=== PATIENT | female | born 1965 | race Caucasian/White ===

== ENCOUNTER 2016-10-01 14:30 | Emergency (ER) | payer SELFPAY ==
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
[2016-10-01 14:57] VITALS: BP 139/67; PULSE 80; RESP 16; TEMP 98.3; O2SAT 96
== END 2016-10-01 16:11 | disposition home or self-care (01) ==
LOC: CED 14:30
DX: K62.5 Hemorrhage of anus and rectum (principal); Z87.891 Personal history of nicotine dependence
CPT/HCPCS: 82270-PO; G0463-PO

== ENCOUNTER → 2016-10-09 | Outpatient (CLI) | payer MEDICAID ==
--- NOTE | 2016-10-09 11:31 | DX ---
Chest, PA and Lateral History: Dyspnea, R06.02 COMPARISON: August 08, 2016 Findings: Perihilar bronchial wall thickening is chronic or recurrent. There is no focal infiltrate o r consolidation. Heart size and pulmonary vascularity are normal. There is no adenopathy or mass lesi on. There is no pleural effusion, pneumomediastinum or pneumothorax. Bones are unremarkable for age. Impression: Possible airways disease. No pneumonia.
--- NOTE | 2016-10-09 16:15 | MA ---
Screening Digital Mammogram With iCAD Analysis Clinical Indications: Routine screening. Technique: Standard cephalocaudal and mediolateral oblique projections were obtained. This examinatio n was processed by the iCAD computer aided detection system. Comparison: January 2014, January 2011, August 2008, July 2007. Breast density: Type C; Heterogeneously dense. Findings: CAD was reviewed. No masses, suspicious calcifications or other signs of malignancy are id entified. There has been no significant change in the appearance of either breast. Impression: Negative mammogram. BI-RADS 1. Recommendation: Mammographic screening in one year as long as physical examination is negative in thi s patient with heterogeneously dense breasts. [facility] will send a result letter to the patient. Dense breast parenchyma diminishes mammographic sensitivity. Negative mammography should not preclude additional workup of a clinically suspicious finding. The patient's information is entered into a reminder system with a target due date for her next mammo gram.
== END ==
LOC: CIMAGING 10:16
DX: Z12.31 Encounter for screening mammogram for malignant neoplasm of breast (principal); R06.02 Shortness of breath
CPT/HCPCS: 71020-PO; G0202

== ENCOUNTER 2017-06-15 12:51 | Emergency (ER) | payer MEDICAID, OTHER ==
[2017-06-15] MEDS ORDERED: BENZONATATE 100 MG CAP PO ONE (13:10)
[2017-06-15 13:12] VITALS: BP 131/72; PULSE 87; RESP 16; TEMP 98.1; O2SAT 97
--- NOTE | 2017-06-15 13:14 | EDPHY ---
H & P Time Seen by Provider: 06/15/17 12:57 HPI/ROS: HPI Cough. 52-year-old female by private vehicle. She complains of a intermittently productive verses nonproductive force cough, ongoing for 2-3 days, worsening today. She has an associated scratchy throat but denies significant sore throat. She also states that she has had some hoarseness in her voice. She does not think she has had a fever. She denies any myalgias or arthralgias. No ill contacts. ROS: Constitutional: No fever, no chills. No weakness. Eyes: No discharge. No changes in vision. ENT: As above. No sore throat. No nasal congestion or rhinorrhea. Respiratory: As above. No shortness of breath. Cardiac: No chest pain, no palpitations. Gastrointestinal: No abdominal pain, no vomiting, no diarrhea. Musculoskeletal: No back pain. No neck pain. No myalgias or arthralgias. Skin: No rashes. Neurological: No headache. No focal weakness or altered sensation. Past medical history: Alcohol abuse. Social history: No alcohol. No IV drug street drug use. Nonsmoker. Here by herself. Physical Exam: General Appearance: Alert, no distress. This patient is responding to questions appropriately and in full sentences. This patient appears well- hydrated and well-nourished. Eyes: Pupils equal and round no pallor or injection. No lid edema, erythema or injection. ENT, Mouth: Mucous membranes are moist. The pharyngeal tissues are unremarkable. No edema or swelling. No asymmetry suggestive of abscess. No erythema or exudates. Respiratory: There are no retractions, lungs are clear to auscultation with good air movement bilaterally. No tachypnea. Intermittent dry cough. Cardiovascular: Regular rate and rhythm. No murmur. Neurological: Motor sensory function is grossly intact. Cranial nerves are normal. Gait is normal. Skin: Warm and dry, no rashes. Musculoskeletal: Neck is supple and nontender. Extremities are symmetrical. All joints range without pain or impingement. Psychiatric: No agitation. No depression. Database: EKG: Imaging: Chest x-ray PA and lateral; the cardiac mediastinal silhouette is unremarkable. No evidence of infiltrate or pneumothorax. Probable bronchitis. No other acute cardiopulmonary disease process noted. Interpreted by me. Procedures: Emergency department course: Vital signs reviewed. She is afebrile. Vital signs otherwise normal. Chest x- ray ordered. He was given Tessalon Perle for her cough. 1:40 p.m., patient re-evaluated. Resting comfortably at this time. Results of her x-ray were discussed with her. I discussed likely viral etiology. I explained that I did not feel that antibiotics were indicated at this time. Plan will be to treat with Tessalon parole and Robitussin. She is in agreement. She feels comfortable going home and I feel she is safe for discharge. Follow-up and return to emergency department precautions discussed with her. All of her questions were answered. She was discharged in good condition. Differential Diagnosis: The differential diagnosis on this patient includes but is not limited to viral bronchitis, viral upper respiratory infection. Bacterial pneumonia, influenza unlikely. This represents a partial list of diagnoses considered. These considerations are based on history, physical exam, past history, reassessment and diagnostic testing. Smoking Status: Never smoked Constitutional: Initial Vital Signs Temperature (C) 36.7 C 06/15/17 13:01 Heart Rate 87 06/15/17 13:01 Respiratory Rate 16 06/15/17 13:01 Blood Pressure 131/72 H 06/15/17 13:01 O2 Sat (%) 97 06/15/17 13:01 O2 Delivery Mode Room Air Allergies/Adverse Reactions: Sulfa (Sulfonamide Antibiotics) Allergy (Verified 06/15/17 13:12) Home Medications: Medication Instructions Recorded Alphagan 0.2% 06/15/17 Benzonatate [Tessalon Pearles] 100 mg PO TID #12 cap 06/15/17 Medical Decision Making - Data Points Medications Given: Discontinued Medications Benzonatate (Tessalon Pearles) 200 mg PO EDNOW ONE Stop: 06/15/17 13:11 Last Admin: 06/15/17 13:33 Dose: 200 mg Departure - Departure Disposition: Home, Routine, Self-Care Clinical Impression: Bronchitis Condition: Good Instructions: Acute Bronchitis (ED) Additional Instructions: Read and follow provided instructions. Follow-up with your primary care physician on Saturday as discussed for re- evaluation. You can also be rechecked here as discussed if you do not feel your getting better and your unable to see your primary care physician.. Take medication as prescribed. You can berry picker Robitussin cough and cold syrup at the pharmacy. Take as directed. Return to the emergency department for worsening cough, difficulty breathing, high fever or other serious concerns. Referrals: [facility],. [Primary Care Provider] - As per Instructions Prescriptions: Benzonatate [Tessalon Pearles] 100 mg PO TID #12 cap
== END 2017-06-15 13:56 | disposition home or self-care (01) ==
LOC: CED 12:51
DX: J40 Bronchitis, not specified as acute or chronic (principal)
CPT/HCPCS: 71020-PO

== ENCOUNTER 2017-06-21 18:14 | Emergency (ER) | payer MEDICAID ==
--- NOTE | 2017-06-21 18:28 | CPEKG ---
Heart Rate: 69 RR Interval: 870 P-R Interval: 148 QRSD Interval: 88 QT Interval: 380 QTC Interval: 407 P [place]: 18 QRS [place]: 54 T Wave [place]: 2 EKG Severity - NORMAL ECG - EKG Impression: SINUS RHYTHM Electronically Signed By: Wili Tran 21-Jun-2017 23:19:43
[2017-06-21] MEDS ORDERED: ASPIRIN 81 MG CHEWABLE TAB PO ONE (18:36)
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
[2017-06-21 18:53] LABS: % IMMATURE GRANULYOCYTES 0.4 % (0.0-1.1); ABSOLUTE IMMATURE GRANULOCYTES 0.03 10^3/uL (0.00-0.10); ADD DIFF? NO; ADD MORPH? NO; ADD SCAN? NO; ATYPICAL LYMPHOCYTE FLAG 10 (0-99); FRAGMENT RBC FLAG 0 (0-99); HEMATOCRIT 37.8 % (38.0-47.0); HEMOGLOBIN 12.6 g/dL (12.6-16.3); LEFT SHIFT FLG 0 (0-99); LIPEMIA HEMOLYSIS FLAG 80 (0-99); MEAN CELL HEMOGLOBIN 28.3 pg (27.9-34.1); MEAN CELL HEMOGLOBIN CONCENTR. 33.3 g/dL (32.4-36.7); MEAN CELL VOLUME 84.9 fL (81.5-99.8); MEAN PLATELET VOLUME 9.4 fL (8.7-11.7); PLATELET CLUMPS FLAG 0 (0-99); PLATELET COUNT 232 10^3/uL (150-400); RED BLOOD CELL COUNT 4.45 10^6/uL (4.18-5.33); RED CELL DISTRIBUTION WIDTH 13.3 % (11.5-15.2)
[2017-06-21] MEDS ORDERED: ASPIRIN 81 MG CHEWABLE TAB ONE (18:53)
[2017-06-21 19:11] LABS: ANION GAP 12 mEq/L (8-16); CALCIUM 9.3 mg/dL (8.5-10.4); CARBON DIOXIDE 26 mEq/l (22-31); CHLORIDE 102 mEq/L (97-110); CREATININE 0.6 mg/dL (0.6-1.0); GLOMERULAR FILTRATION RATE > 60; GLUCOSE 90 mg/dL (70-100); POTASSIUM 3.9 mEq/L (3.5-5.2); SODIUM 140 mEq/L (134-144)
[2017-06-21 19:22] LABS: TROPONIN I < 0.012 ng/mL (0.000-0.034)
[2017-06-21 19:45] VITALS: RESP 16; TEMP 98.4
[2017-06-21 20:27] VITALS: BP 132/69; PULSE 66; O2SAT 97
== END 2017-06-21 20:31 | disposition home or self-care (01) ==
LOC: CED 18:14
DX: R07.89 Other chest pain (principal); R05 Cough
CPT/HCPCS: 71020-PO; 80048-PO; 84484-PO; 85025-PO; 85378-PO

== ENCOUNTER 2017-10-04 10:50 | Emergency (ER) | payer MEDICAID, OTHER ==
[2017-10-04 10:58] VITALS: RESP 20; TEMP 98.2; O2SAT 96
--- NOTE | 2017-10-04 11:12 | EDPHY ---
H & P Time Seen by Provider: 10/04/17 10:53 HPI/ROS: This patient complains of a 3 day history of coughing and nasal congestion. She reports occasional sputum production with her cough that is described as yellow. She is bothered by the nasal congestion and feeling of chest congestion because she is a Michele that required she finds it difficult discussing with the symptoms currently. She states symptoms are moderate intensity and she has no other associated symptoms except that backed of fevers. She also does report mild myalgias diffusely. She drove herself here by private vehicle for evaluation. ROS: No significant fatigue or other constitutional symptoms beyond what is mentioned in HPI. HEENT: No sinus pain. No throat pain or ear pain. Pulmonary: No respiratory distress. No hemoptysis. No pleuritic pain. No significant shortness of breath. Cardiovascular: No lightheadedness or leg pain. No leg swelling. GI: No nausea vomiting or abdominal pain. She did have loose stools for 24 hr prior to the onset of her URI symptoms but the loose stools have since resolved. : No complaints Integumentary: No rash Endocrine: No complaints 10 point ROS is otherwise negative Social History: Sober for 30 years. No drug use Smoking Status: Never smoked Physical Exam: General Appearance: Alert, no distress. Eyes: Pupils equal and round no pallor or injection. ENT, Mouth: Mucous membranes moist. Respiratory: Patient has rales in the right midlung field. Otherwise clear to auscultation bilaterally. No increased work of breathing. Cardiovascular: Regular rate and rhythm. No murmur gallop or rub. No leg swelling or tenderness. Gastrointestinal: Abdomen is soft and nontender, no masses, bowel sounds normal. Neurological: GCS 15. Skin: Warm and dry, no rashes. Musculoskeletal: Neck is supple nontender. Extremities are symmetrical, full range of motion. Psychiatric: Mood and affect are normal DIFFERENTIAL DIAGNOSIS: After history and physical exam differential diagnosis was considered for URI with cough and atelectasis, influenza, pneumonia, bronchitis Constitutional: Initial Vital Signs Temperature (C) 36.8 C 10/04/17 10:54 Heart Rate 85 10/04/17 10:54 Respiratory Rate 20 10/04/17 10:54 Blood Pressure 128/82 H 10/04/17 10:54 O2 Sat (%) 96 10/04/17 10:54 O2 Delivery Mode Room Air Allergies/Adverse Reactions: shellfish derived Allergy (Unknown, Verified 10/04/17 10:54) Other-Enter Comments Sulfa (Sulfonamide Antibiotics) Allergy (Verified 10/04/17 10:54) almond Allergy (Severe, Uncoded 06/21/17 18:23) Anaphylaxis Home Medications: Medication Instructions Recorded Brimonidine 0.15% [Alphagan P 12/25/11 0.15%] Multivitamin 08/08/16 Alphagan 0.2% 06/15/17 Benzonatate [Tessalon Pearles] 100 mg PO TID #12 cap 06/15/17 Albuterol Hfa Anes Only [Proair 2 puffs IH Q4 PRN #1 mdi 06/21/17 Hfa Icu (*)] Benzonatate [Tessalon Pearles (RX)] 100 - 200 mg PO TID PRN #20 cap 06/21/17 Albuterol [Ventolin Hfa Inhaler] 2 puffs IH Q4 PRN #1 mdi 10/04/17 Azithromycin [Zithromax] 250 mg PO DAILY #6 tab 10/04/17 MDM/Departure - MDM Diagnostics: Rapid flu swab is negative Two view chest x-ray: Bronchitis with right middle lobe infiltrate versus atelectasis-mild by my interpretation Imaging: I viewed and interpreted images myself ED Course/Re-evaluation: Discussion: While this patient's presentation has prominent viral components- nasal congestion currently no fever, she does have rales in the right midlung field with chest radiograph that appears consistent with mild right middle lobe infiltrate versus atelectasis by my interpretation. Her rapid flu swab is negative. Given these findings will cover her with macrolide antibiotic. She appears well clinically with normal vital signs and no evidence of systemic toxicity or sepsis. I think that she is safe for discharge home with oral macrolide and Ventolin inhaler. I counseled regarding this. - Depart Disposition: Home, Routine, Self-Care Clinical Impression: Bronchopneumonia Condition: Good Instructions: Acute Bronchitis (ED) Additional Instructions: Diagnosis: Bronchopneumonia Plan: Humidifier Ventolin inhaler with spacer -2 puffs per 4 hr if needed for cough, wheeze or shortness of breath Zithromax antibiotic No work for the next 24 hr. Follow up with your primary care physician for any symptoms that persist beyond the next 5-7 days despite the treatment plan. Return for any significant worsening despite treatment plan Stand Alone Forms: Work Excuse Prescriptions: Albuterol [Ventolin Hfa Inhaler] 2 puffs IH Q4 PRN #1 mdi PRN Reason: wheeze Azithromycin [Zithromax] 250 mg PO DAILY #6 tab Referrals: [facility],. [Primary Care Provider] - As per Instructions
[2017-10-04 11:58] VITALS: BP 125/78; PULSE 83
[2017-10-04] MEDS ORDERED: ALBUTEROL INH PREPACK MDI TAKEHOME ONE (19:55)
== END 2017-10-04 11:58 | disposition home or self-care (01) ==
LOC: CED 10:50
DX: J18.0 Bronchopneumonia, unspecified organism (principal)
CPT/HCPCS: 71046-PO; 87400-PO

== ENCOUNTER 2018-06-07 15:50 | Emergency (ER) | payer MEDICAID ==
--- NOTE | 2018-06-07 16:07 | CPEKG ---
Test Reason : OPEN Blood Pressure : / mmHG Vent. Rate : 073 BPM Atrial Rate : 073 BPM P-R Int : 139 ms QRS Dur : 092 ms QT Int : 393 ms P-R-T Axes : 047 066 -08 degrees QTc Int : 433 ms Sinus rhythm Borderline T abnormalities, inferior leads Confirmed by Tommy Cardenas ([id number]) on 06/07/2018 4:06:47 PM Referred By: Confirmed By:Tommy Cardenas
[2018-06-07] MEDS ORDERED: ASPIRIN 81 MG CHEWABLE TAB PO ONE (16:11)
--- NOTE | 2018-06-07 16:15 | EDPHY ---
H & P Stated Complaint: PT. states mid sternal to left ant cp started,intermittent, dull Time Seen by Provider: 06/07/18 15:58 HPI/ROS: CHIEF COMPLAINT: Chest pain HISTORY OF PRESENT ILLNESS: The patient is a 53-year-old female who comes to the emergency department complaining of left-sided anterior chest pain this morning that is now resolved. No shortness of breath. No diaphoresis. No nausea vomiting. It was not worsened by exertion. She has never had any history of cardiac disease or pulmonary disease. She does not take any medications. She was seen here 1 year ago with similar symptoms at that time had a negative D-dimer and troponin and was discharged home. She describes the pain as tightness. Burning sensation or reflux. Severity: Moderate Modifying factors: Result time REVIEW OF SYSTEMS: Constitutional: denies: chills, fever, recent illness, recent injury EENTM: denies: blurred vision, double vision, nose congestion Respiratory: denies: cough, shortness of breath Cardiac: See HPI denies: irregular heart rate, lightheadedness, palpitations Gastrointestinal/Abdominal: denies: abdominal pain, diarrhea, nausea, vomiting, blood streaked stools Genitourinary: denies: dysuria, frequency, hematuria, pain Musculoskeletal: denies: joint pain, muscle pain Skin: denies: lesions, rash, jaundice, bruising Neurological: denies: headache, numbness, paresthesia, tingling, dizziness, weakness Hematologic/Lymphatic: denies: blood clots, easy bleeding, easy bruising Immunologic/allergic: denies: HIV/AIDS, transplant 10 systems reviewed and negative except as noted EXAM: GENERAL: Well-appearing, well-nourished and in no acute distress. HEAD: Atraumatic, normocephalic. EYES: Pupils equal round and reactive to light, extraocular movements intact, sclera anicteric, conjunctiva are normal. ENT: TMs normal, nares patent, oropharynx clear without exudates. Moist mucous membranes. NECK: Normal range of motion, supple without lymphadenopathy or JVD. LUNGS: Breath sounds clear to auscultation bilaterally and equal. No wheezes rales or rhonchi. HEART: Regular rate and rhythm without murmurs, rubs or gallops. ABDOMEN: Soft, nontender, normoactive bowel sounds. No guarding, no rebound. No masses appreciated. BACK: No CVA tenderness, no spinal tenderness, step-offs or deformities EXTREMITIES: Normal range of motion, no pitting or edema. No clubbing or cyanosis. NEUROLOGICAL: Cranial nerves II through XII grossly intact. Normal speech, normal gait. 5/5 strength, normal movement in all extremities, normal sensation , normal reflexes PSYCH: Normal mood, normal affect. SKIN: Warm, dry, normal turgor, no visible rashes or lesions. Source: Patient Exam Limitations: No limitations - Personal History LMP (Females 10-55): Post Menopausal Tetanus Vaccine Date: within 10 years - Medical/Surgical History Hx Asthma: No Hx Chronic Respiratory Disease: No Hx Diabetes: No Hx Cardiac Disease: No Hx Renal Disease: No Hx Cirrhosis: No Hx Alcoholism: No Hx HIV/AIDS: No Hx Splenectomy or Spleen Trauma: No Other PMH: Med hx-chronic back pain,rt eye trauma-[email or web address]. Surg-none - Family History Significant Family History: No pertinent family hx - Social History Smoking Status: Never smoked Alcohol Use: Sober Drug Use: None Constitutional: Initial Vital Signs Temperature (C) 36.6 C 06/07/18 16:00 Heart Rate 73 06/07/18 16:00 Respiratory Rate 20 06/07/18 16:00 Blood Pressure 113/67 06/07/18 16:00 O2 Sat (%) 97 06/07/18 16:00 O2 Delivery Mode Room Air Allergies/Adverse Reactions: shellfish derived Allergy (Unknown, Verified 06/07/18 15:58) Other-Enter Comments Sulfa (Sulfonamide Antibiotics) Allergy (Verified 06/07/18 15:58) almond Allergy (Severe, Uncoded 06/07/18 15:58) Anaphylaxis Home Medications: Medication Instructions Recorded Multivitamin 08/08/16 Medical Decision Making - Diagnostics EKG Interpretation: An EKG obtained and was read and documented in trace view. Please see trace view for full reading and report. Sinus rhythm, no acute ischemic changes, T- wave inversion in lead 3 and AVF, previous EKG also so T-wave inversion in lead 3. Imaging Results: Imaging Impressions Chest X-Ray 06/07/18 16:12 Impression: Clear lungs. No acute process. ED Course/Re-evaluation: 5:00 p.m. we discussed the patient's test results which are all reassuring. She feels relieved. She thinks that her symptoms are due to high stress and anxiety. She is declining further workup or testing at this time. She will follow up with her primary care doctor for further testing if needed. We also discussed indications for returning to the ER. Differential Diagnosis: Partial list of the Differential diagnosis considered include but were not limited to; acute coronary disease, PE, pneumothorax, anxiety, GERD, peptic ulcer disease and although unlikely based on the history and physical exam, I also considered dissection, aneurysm, pneumothorax. I discussed these differential diagnoses and the plan with the patient as well as the usual and expected course. The patient understands that the diagnosis is provisional and that in medicine we are not always correct and that further workup is often warranted. Usual and customary warnings were given. All of the patient's questions were answered. The patient was instructed to return to the emergency department should the symptoms at all worsen or return, otherwise to followup with the physician as we discussed. - Data Points Laboratory Results: 06/07/18 16:25 POC Troponin I 0.01 ng/mL ng/mL (0.00-0.08) Medications Given: Discontinued Medications Aspirin (Aspirin) 324 mg PO EDNOW ONE Stop: 06/07/18 16:12 Last Admin: 06/07/18 16:23 Dose: 324 mg Point of Care Test Results: CBC CBC Collection Date 06/07/18 CBC Collection Time 16:15 WBC 6.9 RBC 4.91 HGB 14.0 HCT 42.9 PLT 255 Neut # 4.1 Neut 59.3 LYMPH # 2.4 LYMPH 34.6 Other WBC # 0.4 Other WBC 6.1 MCV 87.4 Chemistry 06/07/18 16:25 POC Troponin I 0.01 ng/mL ng/mL (0.00-0.08) Comprehensive Metabolic Panel Chloride 102 Creatinine 0.8 Basic Metabolic Panel BMP Collection Date 06/07/2018 BMP Collection Time 16:15 Sodium 146 Potassium 3.3 Chloride 102 TCO2 27 Glucose 119 BUN 11 Creatinine 0.8 Calcium 9.9 D-Dimer D-Dimer Collection Date 06/07/18 D-Dimer Collection Time 16:15 D-Dimer (ng/ml) <100 Departure - Departure Disposition: Home, Routine, Self-Care Clinical Impression: Chest pain Qualifiers: Chest pain type: unspecified Qualified Code(s): R07.9 - Chest pain, unspecified Condition: Fair Instructions: Chest Pain (ED) Referrals: NONE *PRIMARY CARE P,. [Primary Care Provider] - As per Instructions [facility],. [Clinic] - As per Instructions
[2018-06-07 17:23] VITALS: BP 110/62
== END 2018-06-07 17:21 | disposition home or self-care (01) ==
LOC: CED 15:50
DX: R07.9 Chest pain, unspecified (principal)
CPT/HCPCS: 71046-PO; 80048-PO; 84484-PO

== ENCOUNTER 2019-02-09 15:06 | Emergency (ER) | payer MEDICAID, OTHER ==
--- NOTE | 2019-02-09 15:34 | EDPHY ---
H & P Stated Complaint: cough yellow productive since Saturday worse today Time Seen by Provider: 02/09/19 15:16 HPI/ROS: HPI The patient presents with cough, sore throat, rhinorrhea which have been present for the last 4 days. Symptoms initially began with a sore throat. And have now progressed to some facial tenderness overlying her maxillary sinuses, rhinorrhea, cough productive of yellowish sputum. She has not had a fever. She has not had any sick contacts. She was working in someone's garden before her symptoms began and is wondering if she has allergic rhinitis. She has been taking an antihistamine as well as ibuprofen for her symptoms. She does not have chest pain or shortness of breath. REVIEW OF SYSTEMS 10 systems were reviewed and negative with the exception of the elements mentioned in the history of present illness. PMHx: Low back pain, primary care doctor is at [facility] Hx: Previous cigarette smoker PHYSICAL General Appearance: Alert, no distress Eyes: Pupils equal and round no pallor or injection ENT, Mouth: Mucous membranes moist, posterior pharynx is unremarkable Respiratory: There are no retractions, lungs are clear to auscultation Cardiovascular: Regular rate and rhythm Gastrointestinal: Abdomen is soft and non-tender, no masses, bowel sounds normal Neurological: A&O, moves all extremities Skin: Warm and dry, no rashes Musculoskeletal: Neck is supple non tender Extremities: symmetrical, full range of motion Psychiatric: Patient is oriented X 3, there is no agitation Source: Patient Exam Limitations: No limitations - Personal History LMP (Females 10-55): Irregular Current Tetanus Diphtheria and Acellular Pertussis (TDAP): Yes Tetanus Vaccine Date: within 10 years - Medical/Surgical History Hx Asthma: No Hx Chronic Respiratory Disease: No Hx Diabetes: No Hx Cardiac Disease: No Hx Renal Disease: No Hx Cirrhosis: No Hx Alcoholism: No Hx HIV/AIDS: No Hx Splenectomy or Spleen Trauma: No Other PMH: Med hx-chronic back pain,rt eye trauma-[email or web address]. Surg-none - Social History Smoking Status: Former smoker Constitutional: Initial Vital Signs Temperature (C) 36.2 C 02/09/19 15:16 Heart Rate 80 02/09/19 15:16 Respiratory Rate 16 02/09/19 15:16 Blood Pressure 127/73 H 02/09/19 15:16 O2 Sat (%) 96 02/09/19 15:16 O2 Delivery Mode Room Air Allergies/Adverse Reactions: shellfish derived Allergy (Unknown, Verified 02/09/19 15:14) Other-Enter Comments Sulfa (Sulfonamide Antibiotics) Allergy (Verified 02/09/19 15:14) almond Allergy (Severe, Uncoded 02/09/19 15:14) Anaphylaxis Home Medications: Medication Instructions Recorded Multivitamin 08/08/16 ALPHAGAN P 0.1% (*) 02/09/19 Medical Decision Making - Diagnostics Imaging Results: Imaging Impressions Chest X-Ray 02/09/19 15:29 Impression: 1. Bronchitis/airways disease. 2. No definite focal pneumonia. Differential Diagnosis: Relatively healthy 53-year-old female presents from home with 4 days of sore throat, cough, rhinorrhea, facial pain. Here, well-appearing, normal vital signs. Her lungs sound clear. Differential diagnosis includes viral URI, pneumonia, sinusitis, allergic rhinitis. Plan for chest x-ray. This was unremarkable, revealing likely bronchitis. Patient counseled on diagnosis and treatment of URI being mostly supportive. Will issue her an albuterol inhaler, have encouraged a decongestant such is Sudafed or Mucinex. She will be discharged from the emergency department. - Data Points Medications Given: Discontinued Medications Albuterol Sulfate (Proventil Inh Prepack) 1 mdi FELIPE PARKS ONE Stop: 02/09/19 15:51 Last Admin: 02/09/19 16:26 Dose: 1 mdi Departure - Departure Disposition: Home, Routine, Self-Care Clinical Impression: Acute bronchitis Qualifiers: Bronchitis organism: unspecified organism Qualified Code(s): J20.9 - Acute bronchitis, unspecified Condition: Good Instructions: Albuterol (By breathing), Upper Respiratory Infection (ED) Additional Instructions: I recommend that you consider taking a decongestant such as Sudafed or Mucinex. You can also use albuterol 1-2 puffs every 4-6 hours as needed for cough. You should follow up at [facility] if you're not better in a few days. Referrals: [facility],. [Clinic] - As per Instructions
[2019-02-09] MEDS ORDERED: ALBUTEROL INH PREPACK MDI TAKEHOME ONE (15:50)
[2019-02-09 16:24] VITALS: BP 109/63
== END 2019-02-09 16:30 | disposition home or self-care (01) ==
LOC: CED 15:06
DX: J20.9 Acute bronchitis, unspecified (principal)
CPT/HCPCS: 71046-PO; 99283-ER